=== PATIENT | male | born 1970 | race American Indian/Alaskan Native ===

== ENCOUNTER 2018-11-11 06:03 | Day surgery (SDC) | payer MEDICARE ==
[~2018-11-11 06:03] MED LIST: ANCEF/STERILE WATER 2 GM/20 ML 2 GM/20 ML SYRINGE IV NR; LACTATED RINGERS 1,000 ML IV SCH; VERSED IV NR
[2018-11-11] MEDS ORDERED: NACL BACTERIOSTATIC INFILTRATI ONE (06:23)
[2018-11-11] MEDS ORDERED: VERSED IV NR (07:00)
--- NOTE | 2018-11-11 07:02 | Anesthesia Day of Surgery ---
Anesthesia Day of Surgery - Day of Surgery Patient Examined: Yes Patient H&P Reviewed: Yes Patient is NPO: Yes
--- NOTE | 2018-11-11 07:03 | Anesthesia Consultation ---
Anesthesia Consult and Med Hx Date of service: 11/11/18 - Airway Anesthetic Teeth Evaluation: Good ROM Head & Neck: Adequate Mental/Hyoid Distance: Adequate Mallampati Class: Class II Intubation Access Assessment: Probably Good - Pre-Operative Health Status ASA Pre-Surgery Classification: ASA3 Proposed Anesthetic Plan: General - Pulmonary Hx Smoking: No Hx Sleep Apnea: No - Central Nervous System Hx Psychiatric Problems: No - Hematic Hx Sickle Cell Disease: No - Other Systems Hx Alcohol Use: Yes (Occas) Hx Substance Use: Yes (Marijuana daily) Hx Cancer: No - Additional Comments Anesthesia Medical History Comments: HIV+
[2018-11-11] MEDS ORDERED: SUBLIMAZE IV PRN (07:04)
[2018-11-11] MEDS ORDERED: ZOFRAN IV PRN (07:04)
[2018-11-11] MEDS ORDERED: XYLOCAINE MPF 2% ONE (07:13)
[2018-11-11] MEDS ORDERED: DIPRIVAN 10 MG/ML IV ONE (07:14)
[2018-11-11] MEDS ORDERED: XYLOCAINE 1%/ EPI 1:100,000 INFILTRATI ONE ×2 (07:40→08:12)
[2018-11-11] MEDS ORDERED: NACL 0.9% IR ONE (08:12)
[2018-11-11] MEDS ORDERED: DECADRON ONE (08:26)
[2018-11-11] MEDS ORDERED: ZOFRAN ONE (08:26)
[2018-11-11] MEDS ORDERED: NEO SYNEPHRINE ONE (08:36)
[2018-11-11] MEDS ORDERED: PHENYLEPHRINE/NS Syringe 1,000 MCG/10 ML IV ONE (08:36)
[2018-11-11] MEDS ORDERED: ZEMURON IV ONE (08:36)
[2018-11-11] MEDS ORDERED: BLOXIVERZ ONE (09:05)
[2018-11-11] MEDS ORDERED: ROBINUL ONE (09:05)
--- NOTE | 2018-11-11 10:08 | Operative Report ---
Operative Report Operative Report: Plastic Surgery Operative Note Preoperative Diagnosis: Multiple sebaceous cysts of the buttocks Postoperative Diagnosis: Same Procedure: Excision of multiple sebaceous cysts of the buttocks Surgeon: Lacey Tate MD [employer] Laboratory Technician: SHAKIRA Lagos Anesthesia: General EBL: Minimal Indications: This patient is a 47-year-old -Prydeinig male who presented with complaint of a long-standing history of multiple sebaceous cysts of the back and buttocks and trunk. He stated that he had incision and drainage done by dermatology for several cysts that have become infected in the past. He's also had excision performed in the past and is looking to have lesions on his buttocks which have recently flared up excised. Procedure: After review of pertinent history and physical exam findings patient was brought into the operating room and intubated on the stretcher after which point he was placed prone on the OR table. The lower back and buttocks were prepped and draped in usual sterile surgical fashion. To begin, the most pronounced and therefore logically the most bothersome cysts near the gluteal cleft and on the lower buttocks were identified and marked for excision. 1% lidocaine with epinephrine was injected into each of the cysts and enough time was allowed for epinephrine effect. Using a #15 blade, all cysts were excised sharply to include the cyst capsules. In all, 21 cysts were removed and sent for frozen section. We then began closure using 3-0 Monocryl buried interrupted sutures. Dermabond was used for skin. Patient was then transferred to the stretcher and extubated without difficulty. He was then transferred to the recovery room in stable condition. All sponge needle and instrument counts were correct at the end of the case.
[2018-11-11] MEDS ORDERED: NORCO 7.5/325 PO PRN (10:09)
[2018-11-11 11:45] VITALS: BP 124/81
--- NOTE | 2018-11-11 19:16 | Post Anesthesia Evaluation ---
- Post Anesthesia Evaluation Patient Participated: Yes Airway Patent: Yes Stable Respiratory Function: Yes Nausea/Vomiting: No Temp > 96.8F: Yes Pain Manageable: Yes Adequeate Hydration: Yes Anesthesia Complications: No
== END 2018-11-11 12:55 | disposition home or self-care (01) ==
LOC: OR 06:03
PROVIDERS: ATTEND Plastic Surgery
DX: L72.0 Epidermal cyst (principal); L72.3 Sebaceous cyst; Z79.899 Other long term (current) drug therapy; Z72.89 Other problems related to lifestyle; Z98.890 Other specified postprocedural states
CPT/HCPCS: 11406; 88304; J0690; J1100; J2250; J2370; J2405; J2704; J2710; J3010; J7120